=== PATIENT | female | born 1940 | race Caucasian/White ===

== ENCOUNTER 2018-05-17 10:51 | Emergency (ER) | payer MEDICARE, BC ==
[2005-01-03 17:37] VITALS: BP 119/80
[~2018-05-17] VITALS: Ht 157.5 cm; Wt 48.2 kg
[~2018-05-17 10:51] MED LIST: ALDACTONE 25MG25 M1 PO; AMBIEN 5MG TABLE5 MG PO; AMITRIPTYLINE H25 M1 PO; ATENOLOL25 MG PO; B COMPLEX1 TA2 PO; CALTRATE-600 W600 MG PO; CAPOTEN 25MG25 MG PO; CAPOTEN12.5 MG PO; CARVEDILOL PO; CEPHALEXIN500 M1 PO; CORDARONE200 MG/TAB PO; COREG12.5 MG PO; EXCEDRIN1 TAB PO; FISH OIL CONC1000 MG PO; FISH OIL1000 MG PO; FOSAMAX 70MG TA70 MG PO; LANOXIN 0.25M0.25 MG PO; LASIX 40MG TABL40 MG PO; LEVOTHYROXIN0.025 M1 PO; MIRALAX PA17 GM/Dose PO; NEXIUM40 MG PO; NORCO 325 MG-51 TAB PO; OSTEO-BI-FLEX 21 TAB PO; PRILOSEC 20MG20 MG PO; TYLENOL 325MG325 MG PO; ZETIA 10MG TAB10 MG PO; ZETIA10 MG PO; ZOCOR 20MG20 MG PO; ZOLOFT100 MG PO
[2018-05-17 10:59] VITALS: TEMP 97.1
[2018-05-17 11:22] LABS: BASO # 0.1 (0.0-0.2); BASO % 0.8 % (0.0-2.0); EOS # 0.2 (0.0-0.7); EOS % 1.9 % (0-4.0); GRAN % 71.5 % (42.2-75.2); HEMOGLOBIN 14.7 g/dl (12.5-16.0); LYMPH # 1.8 (1.2-3.4); LYMPH % 18.9 % (20.0-51.0); MEAN CELL VOLUME 96 fl (80.0-100.0); MEAN CORPUSCULAR HEMOGLOBIN 32 pg (27.0-31.0); MEAN CORPUSCULAR HGB CONC 33 g/dl (33.0-37.0); MEAN PLATELET VOLUME 10.7 fl (7.4-10.4); MONO # 0.6 (0.1-0.6); MONO % 6.5 % (1.7-9.3); PLATELET COUNT 237 K/mm3 (130-400); RED BLOOD COUNT 4.67 M/mm3 (4.10-5.30); REDCELL DISTRIBUTION WIDTH-CV 14.5 % (11.5-14.5)
[2018-05-17 11:40] LABS: ALANINE AMINOTRANSFERASE 24 U/L (9-52); ALBUMIN 4.2 gm/dL (3.5-5.0); ALKALINE PHOSPHATASE 81 U/L (50-136); ANION GAP 7 mmol/L (7-16); AST,SGOT 43 U/L (15-37); BILIRUBIN,TOTAL 0.7 mg/dL (0.0-1.0); BLOOD UREA NITROGEN 21 mg/dL (7-17); CALCIUM 9.2 mg/dL (8.4-10.2); CARBON DIOXIDE 31 mmol/L (22-30); CHLORIDE 98 mmol/L (98-107); CREATININE, serum 0.69 mg/dL (0.52-1.25); GLUCOSE 107 mg/dL (74-106); POTASSIUM 3.7 mmol/L (3.4-5.0); SODIUM 136 mmol/L (137-145); TOTAL PROTEIN 7.7 gm/dL (6.4-8.2)
[2018-05-17 11:52] LABS: TROPONIN-I < 0.012 ng/mL (0.000-0.035)
[2018-05-17 12:47] VITALS: BP 119/59; PULSE 69
== END 2018-05-17 12:48 | disposition home or self-care (01) ==
LOC: COL.ER 10:51
PROVIDERS: Family Medicine
DX: Z45.010 Encounter for checking and testing of cardiac pacemaker pulse generator [battery] (principal); I50.9 Heart failure, unspecified; I11.0 Hypertensive heart disease with heart failure; Z87.891 Personal history of nicotine dependence

== ENCOUNTER 2018-05-26 07:39 | Day surgery (SDC) | payer MEDICARE, BC ==
[2005-01-03 17:37] VITALS: BP 119/80
[2018-05-26] VITALS (8 sets, daily range): BP systolic 105–128; BP diastolic 57–73; PULSE 58–70; TEMP 97.7
[~2018-05-26] VITALS: Ht 157.5 cm; Wt 48.1 kg
[2018-05-26 08:55] LABS: HEMOGLOBIN 14.3 g/dl (12.5-16.0); MEAN CELL VOLUME 95 fl (80.0-100.0); MEAN CORPUSCULAR HEMOGLOBIN 32 pg (27.0-31.0); MEAN CORPUSCULAR HGB CONC 33 g/dl (33.0-37.0); MEAN PLATELET VOLUME 11.1 fl (7.4-10.4); PLATELET COUNT 207 K/mm3 (130-400); RED BLOOD COUNT 4.52 M/mm3 (4.10-5.30); REDCELL DISTRIBUTION WIDTH-CV 14.5 % (11.5-14.5)
[2018-05-26 08:57] LABS: INR 1.1 (0.8-3.0); PROTHROMBIN TIME 12.3 SECONDS (9.7-12.8)
[2018-05-26] MEDS ORDERED: ZOFRAN 4MG T4 MG/TAB PO (09:05)
[2018-05-26 09:08] LABS: CALCIUM 9.2 mg/dL (8.4-10.2); CREATININE, serum 0.77 (0.52-1.25); POTASSIUM 3.9 mmol/L (3.4-5.0)
--- NOTE | 2018-05-26 11:31 | NUR ---
ALL MEDICATIONS GIVEN WITH VORB WITH MD. SEE MERGE FOR ALL MEDICATION ADMIN TIMES. SEE MERGE FOR ALL RASS ASSESSMENTS DURING AND POST PROCEDURE.
[2018-05-26] MEDS ORDERED: CEPHALEXIN500 M1 PO (12:37)
--- NOTE | 2018-05-26 14:52 | NUR ---
INT discontinued intact. Discharge instructions given.
--- NOTE | 2018-05-26 15:00 | NUR ---
Transferred to private car by elaine
== END 2018-05-26 15:00 | disposition home or self-care (01) ==
LOC: COL.CAR 07:39
PROVIDERS: Internal Medicine Cardiovascular Disease
DX: Z45.02 Encounter for adjustment and management of automatic implantable cardiac defibrillator (principal); I48.0 Paroxysmal atrial fibrillation; I08.0 Rheumatic disorders of both mitral and aortic valves; I42.8 Other cardiomyopathies; I10 Essential (primary) hypertension; I25.10 Atherosclerotic heart disease of native coronary artery without angina pectoris; F32.9 Major depressive disorder, single episode, unspecified; K57.90 Diverticulosis of intestine, part unspecified, without perforation or abscess without bleeding; M79.7 Fibromyalgia; K21.9 Gastro-esophageal reflux disease without esophagitis; R51 Headache; M19.042 Primary osteoarthritis, left hand; M19.041 Primary osteoarthritis, right hand; M19.072 Primary osteoarthritis, left ankle and foot; E78.5 Hyperlipidemia, unspecified; E03.9 Hypothyroidism, unspecified; E78.00 Pure hypercholesterolemia, unspecified; Z79.899 Other long term (current) drug therapy; Z79.82 Long term (current) use of aspirin; Z80.9 Family history of malignant neoplasm, unspecified; Z82.49 Family history of ischemic heart disease and other diseases of the circulatory system
CPT/HCPCS: J0690; J2250; J3010; J7030